=== PATIENT | male | born 1985 | race Hispanic/Latino ===

== ENCOUNTER 2017-11-09 22:02 | Emergency (ER) | payer OTHER ==
[2017-11-09 22:10] VITALS: TEMP 98.5
[2017-11-09] MEDS ORDERED: Oxycodone/Acetaminophen 5/325 mg Tab PO ONE (23:05)
[2017-11-09] MEDS ORDERED: Oxycodone/Acetaminophen 5/325 mg Tab ONE (23:11)
--- NOTE | 2017-11-09 23:19 | ED PDOC ---
Upper Extremity Pain/Injury Time Seen by Provider: 11/09/17 22:15 Chief Complaint (Nursing): Finger,Hand,&Wrist Chief Complaint (Provider): Finger History/Exam Limitations: no limitations Onset/Duration Of Symptoms: Hrs Additional Complaint(s): Patient is a 32 y/o male with no past medical history who presents to the ED complaining of finger pain, onset prior to arrival. Patient reports that he was playing basketball and he was going up to the rim when he believes that he dislocated his left middle finger. Patient states that he is ambidextrous. He denies any other complaints. PMD: Physician in [place], [place] Past Medical History Reviewed: Historical Data, Nursing Documentation, Vital Signs Vital Signs: Last Vital Signs Temp 98.5 F 11/09/17 22:07 Pulse 67 11/09/17 22:07 Resp 16 11/09/17 22:07 BP 143/83 11/09/17 22:07 Pulse Ox 100 11/09/17 22:07 - Medical History PMH: Asthma - Surgical History Surgical History: No Surg Hx - Family History Family History: States: Unknown Family Hx - Social History Current smoker - smoking cessation education provided: No Alcohol: None Drugs: Denies - Allergies Allergies/Adverse Reactions: Allergies Allergy/AdvReac Type Severity Reaction Status Date / Time No Known Allergies Allergy Verified 11/09/17 22:07 Review of Systems ROS Statement: Except As Marked, All Systems Reviewed And Found Negative Constitutional: Negative for: Fever Musculoskeletal: Positive for: Hand Pain (left middle finger) Physical Exam - Reviewed Nursing Documentation Reviewed: Yes Vital Signs Reviewed: Yes - Physical Exam Pulses-Radial (L): 2+ Pulses-Radial (R): 2+ Extremity: Positive for: Normal ROM, Capillary Refill (<2 seconds), Deformity ( Left middle finger dorsally displaced at DIP joint) Neurologic/Psych: Positive for: Other (Neurovascularly intact). Negative for: Motor/Sensory Deficits - ECG ECG Rhythm: Positive for: Sinus Rhythm (Flattened T waves, Lead 3 and AVF) O2 Sat by Pulse Oximetry: 100 (RA) Pulse Ox Interpretation: Normal Medical Decision Making Medical Decision Making: Time: 22:43 Initial Impression: Possible finger dislocation Initial Plan: --RAD - hand left 3rd digit Time: 23:03 RAD FINDINGS: Bones/joints: No acute fracture. There is anterior dislocation with subluxation of the proximal interphalangeal articulation of the third digit. Soft tissues: Soft tissue edema is seen in the third digit. No radiopaque foreign body. IMPRESSION: 1. Dislocation PIJ third digit 2. Soft tissue edema third digit Time: 23:05 --Patient given Percocet 5/325 mg PO I relocated finger by using mild application of traction, which succesfully relocated finger. post reduction xrays appear improved. pt given finger splint and outpt follow up. ----- Scribe Attestation: Documented by Ari Thomson, acting as a scribe for Tamiko Rashid MD Provider Scribe Attestation: All medical record entries made by the Scribe were at my direction and personally dictated by me. I have reviewed the chart and agree that the record accurately reflects my personal performance of the history, physical exam, medical decision making, and the department course for this patient. I have also personally directed, reviewed, and agree with the discharge instructions and disposition. Procedures - Joint Reduction Conscious Sedation: No Reduction Attempts: 1 Pre-Procedure NV Exam: Yes Post Joint Reduction Film: joint reduced Progress: L finger dislocation- see MDM section Disposition - Clinical Impression Clinical Impression: Finger dislocation - Patient ED Disposition Is Patient to be Admitted: No Counseled Patient/Family Regarding: Studies Performed, Diagnosis, Need For Followup - Disposition Referrals: Yasir Cyr MD [Medical Doctor] - Disposition: Routine/Home Disposition Time: 23:45 Condition: IMPROVED Additional Instructions: follow up as instructed with hand specialist in 1 week return to the ED With any worsening or concerning symptoms Instructions: Finger Dislocation (DC) Forms: [employer] (Greenlandic)
[2017-11-10 00:11] VITALS: BP 136/72; PULSE 69; RESP 18
[2017-11-10 00:42] VITALS: O2SAT 100
--- NOTE | 2017-11-10 10:33 | RAD ---
Date of service: 11/09/2017 PROCEDURE: Left middle finger radiographs. HISTORY: Left finger rule out dislocation and fracture COMPARISON: None. TECHNIQUE: AP radiograph of the left hand, as well as spot oblique and lateral images of left middle finger were obtained. FINDINGS: LEFT MIDDLE FINGER: Current study reveals dorsal and slight ulnar dislocation of the middle phalanx with respect to the proximal phalanx 3rd finger . There is moderate surrounding soft tissue swelling. No definitive evidence of acute displaced fracture. Nonspecific cortical cystic changes along the radial distal aspect of the middle phalanx 3rd finger noted. . JOINTS: As above. SOFT TISSUES: As above OTHER FINDINGS: None. IMPRESSION: There is dorsal and slight volar dislocation middle phalanx with respect to the proximal phalanx 3rd finger. Moderate surrounding soft tissue swelling. Nonspecific cortical cystic changes radial distal aspect middle phalanx 3rd finger.
--- NOTE | 2017-11-10 10:47 | RAD ---
Date of service: 11/09/2017 PROCEDURE: Left middle finger radiographs. HISTORY: post reduction COMPARISON: Comparison made with prior radiographs left hand obtained earlier same day TECHNIQUE: AP radiograph of the left hand, as well as spot oblique and lateral images of left middle finger were obtained. FINDINGS: LEFT MIDDLE FINGER: Status post closed reduction previously noted dislocated middle phalanx with respect to the proximal phalanx 3rd finger. Surrounding soft tissue swelling. No definitive evidence of acute displaced fracture however repeat radiographs 7-10 days could be performed to assess for occult fracture which should manifest as periosteal reaction if symptoms swelling. Persist or occult fracture suspected clinically. Again noted are cortically based and cystic changes along the distal radial aspect of the middle phalanx 3rd finger noted. JOINTS: As above. SOFT TISSUES: As above OTHER FINDINGS: None. IMPRESSION: Status post closed reduction previously noted dislocated middle phalanx with respect to the proximal phalanx 3rd finger. Surrounding soft tissue swelling. No definitive evidence of acute displaced fracture however repeat radiographs 7-10 days could be performed to assess for occult fracture which should manifest as periosteal reaction if symptoms swelling. Persist or occult fracture suspected clinically. Again noted are cortically based and cystic changes along the distal radial aspect of the middle phalanx 3rd finger noted.
== END 2017-11-10 00:10 | disposition home or self-care (01) ==
LOC: H.ER 22:02
DX: S63.253A Unspecified dislocation of left middle finger, initial encounter (principal); X58.XXXA Exposure to other specified factors, initial encounter; Y93.67 Activity, basketball; J45.909 Unspecified asthma, uncomplicated